=== PATIENT | female | born 1960 | race Caucasian/White ===

== ENCOUNTER 2016-10-19 20:07 | Emergency (ER) | payer BC ==
--- NOTE | 2016-10-20 05:48 | ER ---
ADMIT: 10/19/2016 RM/LOC: ER [facility] MR#: [id number] [facility] [address] [place], [place] [id number] [address]NEY TAYLOR [address] [place] [address] Emergency Room Report SEX: F AGE: 56 : 1960 DATE: 10/19/2016 The patient is a 56-year-old, Armenian-speaking female, complaining of dizziness associated with cough for the past 2 to 3 days. Denies any fever, vomiting, or chest pain. Exam remarkable for nontoxic, afebrile female with bronchospastic cough, resolved with DuoNeb aerosol x2, Solu-Medrol 125 mg IV push, magnesium 2 g IV piggyback. Chest x-ray, no acute findings. EKG showed sinus tachycardia without ST-T or Q-wave change, no prior tracing. Normal CBC, CMP, lactic acid. CRP elevated at 1.26, BN peptide 43, troponin less than 0.015, D-dimer 2.34. Tox screen positive for benzodiazepine, EtOH 0. UA unremarkable. The patient discharged on doxycycline 200 mg p.o. in department, 100 mg p.o. b.i.d. x7 days; prednisone 40 mg daily x5 days; albuterol MDI as needed; guaifenesin with codeine 10 mL q.i.d. p.r.n., dispensed 120 mL. Kareem Patel MD/ nasreenl JOB #: [id number] CC: Kareem Patel MD, Attending Physician Silverio Shrestha MD, Family Physician Silverio Shrestha MD
== END 2016-10-19 22:30 | disposition home or self-care (01) ==
LOC: ER 20:07
DX: J45.909 Unspecified asthma, uncomplicated (principal); Z90.710 Acquired absence of both cervix and uterus; Z98.890 Other specified postprocedural states